=== PATIENT | male | born 1990 | race Caucasian/White ===

== ENCOUNTER 2017-06-05 17:43 | Emergency (ER) | payer SELFPAY | END 2017-06-05 21:58 | disposition home or self-care (01) | LOC: D.ER 17:43 | DX: J06.9 Acute upper respiratory infection, unspecified (principal); M54.5 Low back pain; S39.012A Strain of muscle, fascia and tendon of lower back, initial encounter; X58.XXXA Exposure to other specified factors, initial encounter; Y93.89 Activity, other specified; Y92.89 Other specified places as the place of occurrence of the external cause ==

== ENCOUNTER 2018-12-12 05:30 | Emergency (ER) | payer MEDICAID ==
[~2018-12-12] VITALS: Ht 170.2 cm; Wt 63.6 kg
[2018-12-12 05:34] VITALS: BP 154/90; Ht 170.2 cm; Wt 63.6 kg
== END 2018-12-12 05:43 | disposition home or self-care (01) ==
LOC: D.ER 05:30
DX: R32 Unspecified urinary incontinence (principal)